=== PATIENT | male | born 1950 | race Caucasian/White ===

== ENCOUNTER 2017-06-27 08:55 | Inpatient (IN) | payer OTHER ==
[~2017-06-27] VITALS: Ht 167.6 cm; Wt 96.9 kg
[2017-06-27] MEDS ORDERED: LISI-170 PO (09:17)
[2017-06-27] MEDS ORDERED: ALBU8.5H8 INH (09:17)
[2017-06-27] MEDS ORDERED: BISO5TAB2 PO (09:17)
[2017-06-27] MEDS ORDERED: ASPI-496 PO (09:17)
[2017-06-27] MEDS ORDERED: GABA300C10 PO (09:17)
[2017-06-27] MEDS ORDERED: ATOR40TA78 PO (09:17)
[2017-06-27] MEDS ORDERED: TAMS-11 PO (09:17)
[2017-06-27] MEDS ORDERED: ALBUTEROL/IPRATROPIUM 2.5MG/0.5MG, 3 ML NPPB ONE (09:30)
[2017-06-27] MEDS ORDERED: SODIUM CHLORIDE FLUSH 10ML SYR IVF ONE (09:30)
[2017-06-27] MEDS ORDERED: ALBUTEROL/IPRATROPIUM 2.5MG/0.5MG, 3 ML ONE (09:37)
[2017-06-27 09:46] LABS: BASOPHILS # (AUTO) 0.08 x10^3/uL (0-0.1); BASOPHILS % (AUTO) 1 % (0-1); EOSINOPHILS # (AUTO) 0.15 x10^3/uL (0-0.4); EOSINOPHILS % (AUTO) 2 % (1-7); LYMPHOCYTES % (AUTO) 23 % (22-44); MD NO; MEAN CORPUSCULAR HEMOGLOBIN 30.8 pg (27.5-34.5); MEAN CORPUSCULAR HGB CONC 33.7 g/dL (33.2-36.2); MEAN CORPUSCULAR VOLUME 91.5 fL (81-97); MEAN PLATELET VOLUME 8.3 fL (7.4-10.4); MONOCYTES # (AUTO) 0.67 x10^3/uL (0.2-0.8); MONOCYTES % (AUTO) 9 % (2-9); NEUTROPHILS # (AUTO) 5.16 x10^3/uL (1.8-6.8); NEUTROPHILS % (AUTO) 66 % (42-75); PLATELET COUNT 241 x10^3/uL (130-400); RED BLOOD COUNT 5.61 x10^6/uL (4.38-5.82); RED CELL DISTRIBUTION WIDTH 14.7 % (9.4-14.8)
[2017-06-27 09:51] LABS: ALANINE AMINOTRANSFERASE 18 U/L (12-78); ANION GAP 8 mmol/L (5-15); CALCIUM 8.6 mg/dL (8.5-10.1); CHLORIDE 94 mmol/L (98-107); CREATININE 0.72 mg/dL (0.7-1.3)
[2017-06-27 09:56] LABS: ALKALINE PHOSPHATASE 107 U/L (45-117); BILIRUBIN,TOTAL 0.6 mg/dL (0.2-1.0); TROPONIN I < 0.015 ng/mL (0.000-0.045)
[2017-06-27 10:02] LABS: INTERNATIONAL NORMALIZED RATIO 1.05 (0.93-1.1); PROTHROMBIN TIME 10.9 Seconds (9.6-11.5); THYROID STIMULATING HORMONE 0.705 mIU/L (0.358-3.740)
[2017-06-27] MEDS ORDERED: SODIUM CHLORIDE 0.9% 1,000ML IVBOLUS ONE (10:30)
[2017-06-27] MEDS ORDERED: SODIUM CHLORIDE FLUSH 10ML SYR IVF PRN (10:30)
[2017-06-27 11:18] VITALS: BP 131/76
[2017-06-27 11:43] VITALS: BP 131/76
[2017-06-27] MEDS ORDERED: morphine SULFATE 10 MG/ML, 1ML IVPush PRN (12:00)
[2017-06-27] MEDS ORDERED: BISACODYL 10 MG SUPP PR PRN (12:00)
[2017-06-27] MEDS ORDERED: hydrALAzine 20 MG/ML, 1ML IVPush PRN (12:00)
[2017-06-27] MEDS ORDERED: ENALAPRILAT 1.25 MG/ML, 2ML IVPush PRN (12:00)
[2017-06-27] MEDS ORDERED: HYDROcodone/APAP 5/325 TABLET PO PRN (12:00)
[2017-06-27] MEDS ORDERED: ONDANSETRON 2MG/ML, 2ML IVPush PRN (12:00)
[2017-06-27] MEDS ORDERED: ACETAMINOPHEN 325 MG TABLET PO PRN (12:00)
[2017-06-27] MEDS ORDERED: NITROGLYCERIN 0.4 MG BOTTLE (25 TABS) SL PRN (12:00)
[2017-06-27] MEDS ORDERED: LISINOPRIL 20 MG TABLET PO SCH (12:00)
[2017-06-27] MEDS ORDERED: POLYETHYLENE GLYCOL 17 GM PACKET PO PRN (12:00)
[2017-06-27] MEDS ORDERED: GABAPENTIN 300 MG CAPSULE PO SCH (12:00)
[2017-06-27] MEDS ORDERED: DOCUSATE 100 MG CAPSULE PO PRN (12:00)
[2017-06-27] MEDS ORDERED: ASPIRIN 325 MG TABLET PO ONE (12:00)
[2017-06-27] MEDS ORDERED: TIZA4CAP PO (12:15)
[2017-06-27] MEDS ORDERED: ASPI-621 PO (12:15)
[2017-06-27] MEDS ORDERED: GABA600T2 PO (12:15)
[2017-06-27] MEDS ORDERED: BISO10TA PO (12:15)
[2017-06-27] MEDS ORDERED: MIRT30TA4 PO (12:15)
[2017-06-27] MEDS ORDERED: TIOT18CA INH (12:15)
[2017-06-27] MEDS ORDERED: DIVA-68 PO (12:15)
[2017-06-27] MEDS ORDERED: ARIP20TA5 PO (12:15)
[2017-06-27] MEDS ORDERED: LISI5TAB7 PO (12:15)
[2017-06-27] MEDS: TEMPLATE NON-FORMULARY MED. (Tiotropium Bromide** (Spiriva**) 18 MCG) INH SCH (12:30)
[2017-06-27] MEDS: NICOTINE 14MG/24 HR PATCH.TD24 TD SCH (12:30)
[2017-06-27] MEDS ORDERED: MAGNESIUM SULFATE PMX 2GM/50ML 50 ML IV ONE (12:30)
[2017-06-27] MEDS ORDERED: CLON-364 PO (12:32)
[2017-06-27] MEDS: SODIUM CHLORIDE 0.9% 1,000 ML IV SCH ×2 (12:47→21:23)
[2017-06-27] MEDS: ARIPIPRAZOLE 10 MG TABLET PO SCH (12:47)
[2017-06-27] MEDS: GABAPENTIN 300 MG CAPSULE PO SCH ×3 (12:48→21:28)
[2017-06-27] MEDS: TAMSULOSIN 0.4 MG CAP.ER.24H PO SCH (12:48)
[2017-06-27] MEDS: LISINOPRIL 5 MG TABLET PO SCH (12:48)
[2017-06-27 13:00] LABS: TROPONIN I < 0.015 ng/mL (0.000-0.045)
[2017-06-27] MEDS: ALBUTEROL/IPRATROPIUM 2.5MG/0.5MG, 3 ML NPPB SCH ×3 (13:00→21:46)
[2017-06-27 13:32] VITALS: BP 132/75
[2017-06-27] MEDS: METOPROLOL TARTRATE 50 MG TABLET PO SCH (18:19)
[2017-06-27 18:36] LABS: TROPONIN I < 0.015 ng/mL (0.000-0.045)
[2017-06-27 18:50] VITALS: BP 107/62
[2017-06-27] MEDS: DIVALPROEX 500 MG TABLET.DR PO SCH ×3 (21:00→21:30)
[2017-06-27] MEDS: TIZANIDINE 4MG TABLET PO SCH (21:23)
[2017-06-27] MEDS: MIRTAZAPINE 30 MG TAB.RAPDIS PO SCH (21:24)
[2017-06-27] MEDS: ATORVASTATIN 40 MG TABLET PO SCH (21:24)
[2017-06-28] MEDS: ENOXAPARIN 40 MG/0.4 ML SQ SCH (00:43)
[2017-06-28 01:07] VITALS: BP 133/72
[2017-06-28 05:19] LABS: BASOPHILS # (AUTO) 0.04 x10^3/uL (0-0.1); BASOPHILS % (AUTO) 1 % (0-1); EOSINOPHILS % (AUTO) 1 % (1-7); LYMPHOCYTES # (AUTO) 1.91 x10^3/uL (1-3.4); LYMPHOCYTES % (AUTO) 27 % (22-44); MD NO; MEAN CORPUSCULAR HEMOGLOBIN 30.7 pg (27.5-34.5); MEAN CORPUSCULAR HGB CONC 33.2 g/dL (33.2-36.2); MEAN CORPUSCULAR VOLUME 92.5 fL (81-97); MEAN PLATELET VOLUME 8.5 fL (7.4-10.4); MONOCYTES # (AUTO) 0.76 x10^3/uL (0.2-0.8); MONOCYTES % (AUTO) 11 % (2-9); NEUTROPHILS % (AUTO) 60 % (42-75); PLATELET COUNT 227 x10^3/uL (130-400); RED BLOOD COUNT 5.38 x10^6/uL (4.38-5.82); RED CELL DISTRIBUTION WIDTH 14.9 % (9.4-14.8)
[2017-06-28 05:27] LABS: CHLORIDE 105 mmol/L (98-107)
[2017-06-28] MEDS: METOPROLOL TARTRATE 50 MG TABLET PO SCH ×2 (05:42→17:57)
[2017-06-28] MEDS: SODIUM CHLORIDE 0.9% 1,000 ML IV SCH (05:43)
[2017-06-28 05:45] LABS: ANION GAP 7 mmol/L (5-15); CALCIUM 8.5 mg/dL (8.5-10.1); CHOL/HDL RATIO 3.1; CHOLESTEROL, TOTAL 98 mg/dL (140-239); CREATININE 0.61 mg/dL (0.7-1.3); HDL CHOL % 33 % (26-37); HDL CHOLESTEROL (DIRECT) 32 mg/dL (40-60); LDL CHOLESTEROL,CALCULATED 48 mg/dL (54-169); LDL/HDL RATIO 1.5 (0.5-3.0); THYROID STIMULATING HORMONE 0.743 mIU/L (0.358-3.740); TRIGLYCERIDES 88 mg/dL (50-200); VLDL CHOLESTEROL 18 mg/dL (0-25)
[2017-06-28] MEDS: ALBUTEROL/IPRATROPIUM 2.5MG/0.5MG, 3 ML NPPB SCH ×4 (06:51→20:00)
[2017-06-28 07:09] VITALS: BP 151/84
[2017-06-28] MEDS: TEMPLATE NON-FORMULARY MED. (Tiotropium Bromide** (Spiriva**) 18 MCG) INH SCH (09:00)
[2017-06-28] MEDS: DIVALPROEX 500 MG TABLET.DR PO SCH ×3 (09:00→21:02)
[2017-06-28] MEDS: ARIPIPRAZOLE 10 MG TABLET PO SCH (09:26)
[2017-06-28] MEDS: ASPIRIN 81 MG TABLET EC PO SCH (09:27)
[2017-06-28] MEDS: GABAPENTIN 300 MG CAPSULE PO SCH ×3 (09:27→21:01)
[2017-06-28] MEDS: TAMSULOSIN 0.4 MG CAP.ER.24H PO SCH (09:28)
[2017-06-28] MEDS: LISINOPRIL 5 MG TABLET PO SCH (09:28)
[2017-06-28 12:39] VITALS: BP 113/75
[2017-06-28] MEDS ORDERED: SODIUM CHLORIDE 0.9% 1,000 ML IV ONE (12:50)
[2017-06-28] MEDS: NICOTINE 14MG/24 HR PATCH.TD24 TD SCH (13:34)
[2017-06-28] MEDS ORDERED: BIVALIRUDIN 250 MG ONE (14:20)
[2017-06-28] MEDS ORDERED: HEPARIN 1,000 UNITS/ML, 10ML ONE (14:20)
[2017-06-28] MEDS ORDERED: TICAGRELOR 90 MG TABLET ONE (14:20)
[2017-06-28] MEDS ORDERED: VERAPAMIL 2.5 MG/ML, 2ML ONE (14:20)
[2017-06-28] MEDS ORDERED: MIDAZOLAM 1 MG/ML, 5ML ONE (14:20)
[2017-06-28] MEDS ORDERED: FENTANYL PF 100 MCG/2ML ONE (14:20)
[2017-06-28] MEDS ORDERED: LIDOCAINE 2%, 2ML ONE (14:21)
[2017-06-28] MEDS ORDERED: LIDOCAINE 2%, 10ML ONE (14:21)
[2017-06-28 19:31] VITALS: BP 108/66
[2017-06-28] MEDS: MIRTAZAPINE 30 MG TAB.RAPDIS PO SCH (21:01)
[2017-06-28] MEDS: ATORVASTATIN 40 MG TABLET PO SCH (21:01)
[2017-06-28] MEDS: TIZANIDINE 4MG TABLET PO SCH (21:01)
[2017-06-29] MEDS: ENOXAPARIN 40 MG/0.4 ML SQ SCH (00:58)
[2017-06-29 02:57] VITALS: BP 116/64
[2017-06-29 05:15] LABS: ANION GAP 9 mmol/L (5-15); CHLORIDE 102 mmol/L (98-107)
[2017-06-29 05:18] LABS: CREATININE 0.74 mg/dL (0.7-1.3)
[2017-06-29] MEDS: METOPROLOL TARTRATE 50 MG TABLET PO SCH (06:00)
[2017-06-29 07:18] VITALS: BP 132/72
[2017-06-29] MEDS: ALBUTEROL/IPRATROPIUM 2.5MG/0.5MG, 3 ML NPPB SCH (08:20)
[2017-06-29] MEDS: DIVALPROEX 500 MG TABLET.DR PO SCH (09:00)
[2017-06-29] MEDS: TEMPLATE NON-FORMULARY MED. (Tiotropium Bromide** (Spiriva**) 18 MCG) INH SCH (09:00)
[2017-06-29] MEDS: LISINOPRIL 5 MG TABLET PO SCH (09:48)
[2017-06-29] MEDS: ARIPIPRAZOLE 10 MG TABLET PO SCH (09:50)
[2017-06-29] MEDS: GABAPENTIN 300 MG CAPSULE PO SCH (09:51)
[2017-06-29] MEDS: TAMSULOSIN 0.4 MG CAP.ER.24H PO SCH (09:52)
[2017-06-29] MEDS: ASPIRIN 81 MG TABLET EC PO SCH (09:52)
[2017-06-29] MEDS ORDERED: MAGNESIUM OXIDE 400 MG TABLET PO SCH (11:30)
== END 2017-06-29 12:09 | disposition home or self-care (01) | DRG 880 ==
LOC: ED 09:51 → EDIP 10:27 → INTOOBSV 10:27 → 5SO 11:05 → OBSVTOIN 13:56
PROVIDERS: ADMIT Internal Medicine Pulmonary Disease; ATTEND Internal Medicine Pulmonary Disease
PROC: 4A023N7 Measurement of Cardiac Sampling and Pressure, Left Heart, Percutaneous Approach (ICD-10-PCS; principal; 2017-06-28)
PROC: B2111ZZ Fluoroscopy of Multiple Coronary Arteries using Low Osmolar Contrast (ICD-10-PCS; 2017-06-28)
PROC: B2181ZZ Fluoroscopy of Left Internal Mammary Bypass Graft using Low Osmolar Contrast (ICD-10-PCS; 2017-06-28)
PROC: B2131ZZ Fluoroscopy of Multiple Coronary Artery Bypass Grafts using Low Osmolar Contrast (ICD-10-PCS; 2017-06-28)
DX: F41.9 Anxiety disorder, unspecified (principal); I50.33 Acute on chronic diastolic (congestive) heart failure; E44.0 Moderate protein-calorie malnutrition; I25.110 Atherosclerotic heart disease of native coronary artery with unstable angina pectoris; E87.1 Hypo-osmolality and hyponatremia; I25.810 Atherosclerosis of coronary artery bypass graft(s) without angina pectoris; E83.42 Hypomagnesemia; J44.1 Chronic obstructive pulmonary disease with (acute) exacerbation; I11.0 Hypertensive heart disease with heart failure; I73.9 Peripheral vascular disease, unspecified; E78.5 Hyperlipidemia, unspecified; F17.290 Nicotine dependence, other tobacco product, uncomplicated; I25.2 Old myocardial infarction; Z95.1 Presence of aortocoronary bypass graft; Z82.49 Family history of ischemic heart disease and other diseases of the circulatory system; Z82.3 Family history of stroke; N40.0 Benign prostatic hyperplasia without lower urinary tract symptoms; Z71.6 Tobacco abuse counseling; I45.10 Unspecified right bundle-branch block; Z79.82 Long term (current) use of aspirin; Z68.34 Body mass index [BMI] 34.0-34.9, adult
CPT/HCPCS: 36415; 71045; 80048; 80053; 80061; 83735; 84295; 84443; 84484; 85025; 85610; 85730; 93005; 93306; 93458; 94640; 99156; 99157; 99285; C1769; C1894; G0378; J0583; J1644; J1650; J2250; J3010; J3490; J7620; C1887; J3475; J7030; Q9967